=== PATIENT | male | born 1975 | race Caucasian/White ===

== ENCOUNTER 2018-11-18 11:27 | Emergency (ER) | payer OTHER ==
--- NOTE | 2018-11-18 12:08 | EDM.PDOC ---
ED HPI GENERAL MEDICAL PROBLEM - General Chief Complaint: Head Injury Stated Complaint: HIT HEAD ON ICE Time Seen by Provider: 11/18/18 11:55 - History of Present Illness INITIAL COMMENTS - FREE TEXT/NARRATIVE: HISTORY AND PHYSICAL: History of present illness: The patient is a 43-year-old male who presents with complaints of persistent headache and neck pain after sustaining a fall on Saturday while ice skating, 2 days ago. The patient tells me that in the weeks prior to the fall he has been working out at the gym again and he felt some discomfort in the right side of his neck that he felt was more muscular and he thought it may have been because he overdid it at the gym. The patient says that on Saturday he was skating backwards and lost his footing and fell backwards striking the back of his head. He does not recall passing out but his said he seemed dazed for a minute afterwards but he did not completely pass out. He went home and place ice on his scalp because there was swelling and that has since improved. He has had nausea and some persistent headache but no vomiting no chest pain no extremity complaints and no weakness in his extremities. He has no mid or lower back pain. He says his neck is more achy more on the right side, which is the area that was causing him discomfort before the fall, and he feels more stiff in his neck areas. He says he intermittently will have some tingling in bilateral upper extremities with certain movements of his head and neck but there is no weakness and it is not persistent. He denies any extremity pain and has been eating and drinking normally despite the nausea. He says he has had several concussions in the past and thought that it was just a concussion and did not come in initially but due to the persistence of the symptoms he thought he should be checked out. Feel confused or forgetful but he does feel intermittently dizzy and lightheaded but he is not passing out or blacking out Review of systems: As per history of present illness and below otherwise all systems reviewed and negative. Past medical history: As per history of present illness and as reviewed below otherwise noncontributory. Surgical history: As per history of present illness and as reviewed below otherwise noncontributory. Social history: No reported history of drug or alcohol abuse. Family history: As per history of present illness and as reviewed below otherwise noncontributory. Physical exam: General: Well-developed well-nourished man who is nontoxic and vital signs reviewed by me HEENT: Atraumatic, normocephalic, there is no evidence of any ischemic tissue changes soft tissue swelling defects or deformities of the scalp, EOMs are intact pupils reactive, negative for conjunctival pallor or scleral icterus, mucous membranes moist, throat clear, neck supple, nontender, trachea midline. There is no soft tissue tenderness defects or deformities of the facial bones, bite is intact, there are no midline step-offs tenderness defects of the cervical spine but there is diffuse paraspinal tenderness bilaterally including the trapezius Lungs: Clear to auscultation, breath sounds equal bilaterally, chest nontender Heart: S1S2, regular in rhythm no overt murmurs Abdomen: Soft, nondistended, nontender. NABS Pelvis: Stable nontender. Genitourinary: Deferred. Rectal: Deferred. Extremities: Atraumatic, negative for cords or calf pain. Neurovascular unremarkable. Full range of motion without defects or deficits Neuro: Awake, alert, oriented. Cranial nerves II through XII unremarkable. Cerebellum unremarkable. Motor and sensory unremarkable throughout. Exam nonfocal. Back: There are no midline step-offs in his defects of the thoracic or lumbar spine and no posterior pelvis or posterior rib tenderness Diagnostics: CT scan of the head and C-spine Therapeutics: Impression: Concussion syndrome, history of prior concussions, paraspinal cervical muscle status post fall Definitive disposition and diagnosis as appropriate pending reevaluation and review of above. neck right side Pain Score (Numeric/FACES): 5 - Related Data Allergies Allergy/AdvReac Type Severity Reaction Status Date / Time No Known Allergies Allergy Verified 11/18/18 11:44 Home Meds: Home Meds . [No Known Home Meds] 09/30/14 [History] Past Medical History - Infectious Disease History Infectious Disease History: Reports: Chicken Pox - Past Surgical History Musculoskeletal Surgical History: Reports: Other (See Below) Other Musculoskeletal Surgeries/Procedures:: knee surgery Social & Family History - Family History Family Medical History: Noncontributory - Tobacco Use Smoking Status *Q: Former Smoker Used Tobacco, but Quit: Yes Month/Year Tobacco Last Used: 1 - Recreational Drug Use Recreational Drug Use: No ED ROS GENERAL - Review of Systems Review Of Systems: ROS reveals no pertinent complaints other than HPI. ED EXAM, HEAD INJURY - Physical Exam Exam: See Below (see dictation) Course - Vital Signs Last Recorded V/S: Last Vital Signs Temp 36.4 C 11/18/18 11:45 Pulse 73 11/18/18 11:45 Resp 18 11/18/18 11:45 BP 142/89 H 11/18/18 11:45 Pulse Ox 98 11/18/18 11:45 Departure - Departure Time of Disposition: 13:27 Disposition: Home, Self-Care 01 Condition: Good Clinical Impression: Concussion injury of brain, Musculoskeletal pain, Neck pain - Discharge Information Referrals: PCP,None [Primary Care Provider] - Forms: ED Department Discharge Additional Instructions: The following information is given to patients seen in the emergency department who are being discharged to home. This information is to outline your options for follow-up care. We provide all patients seen in our emergency department with a follow-up referral. The need for follow-up, as well as the timing and circumstances, are variable depending upon the specifics of your emergency department visit. If you don't have a primary care physician on staff, we will provide you with a referral. We always advise you to contact your personal physician following an emergency department visit to inform them of the circumstance of the visit and for follow-up with them and/or the need for any referrals to a consulting specialist. The emergency department will also refer you to a specialist when appropriate. This referral assures that you have the opportunity for followup care with a specialist. All of these measure are taken in an effort to provide you with optimal care, which includes your followup. Under all circumstances we always encourage you to contact your private physician who remains a resource for coordinating your care. When calling for followup care, please make the office aware that this follow-up is from your recent emergency room visit. If for any reason you are refused follow-up, please contact the [facility] emergency department at and ask to speak to the emergency department charge nurse. [facility] Primary care- Internal Medicine and Family [address] [address] Use ice to all areas of discomfort for the next 24 hours and alternate heat and ice depending on activity level. Before doing any exercise please warm of the muscles and try to stretch them and open them up. Use [id number] ibuprofen or Motrin for pain and discomfort and schedule a follow-up appointment with your provider or one of hours in the clinic for further care and evaluation. Return to ER as needed and as discussed. Remember that with any concussion your can have signs and symptoms up to 2 weeks as we discussed.
--- NOTE | 2018-11-18 13:12 | CT ---
INDICATION: Fall, injury with pain and dizziness. TECHNIQUE: CT cervical spine without contrast. COMPARISON: None FINDINGS: Vertebrae: Alignment is normal. There are no fractures or suspicious bony lesions. Discs and facet joints: Disc spaces and facets are within normal limits. Extraspinal findings: Prevertebral soft tissues, visualized airway, and visualized lungs are unremarkable. IMPRESSION: Unremarkable cervical spine CT. No sign of injury. Please note that all CT scans at this facility use dose modulation, iterative reconstruction, and/or weight-based dosing when appropriate to reduce radiation dose to as low as reasonably achievable. Dictated by Kevin Brian MD @ Nov 18 2018 1:08PM Signed by Dr. Kevin Brian @ Nov 18 2018 1:11PM
--- NOTE | 2018-11-18 13:21 | CT ---
INDICATION: Fall, injury with pain and dizziness. TECHNIQUE: CT head without contrast. COMPARISON: None. FINDINGS: CSF spaces: Within normal limits for age. Brain parenchyma: The fine-white differentiation is normal. No sign of mass, hemorrhage, or midline shift. Skull base and calvarium: The visualized paranasal sinuses and mastoid air cells demonstrate no acute or significant findings. The visualized orbits are grossly unremarkable. No skull fractures. IMPRESSION: Unremarkable noncontrast head CT. No sign of injury. Please note that all CT scans at this facility use dose modulation, iterative reconstruction, and/or weight-based dosing when appropriate to reduce radiation dose to as low as reasonably achievable. Dictated by Kevin Brian MD @ Nov 18 2018 1:08PM Signed by Dr. Kevin Brian @ Nov 18 2018 1:18PM
[2018-11-18 13:58] VITALS: BP 142/93
== END 2018-11-18 13:45 | disposition home or self-care (01) ==
LOC: MW.ED 11:27
DX: S06.0X9A Concussion with loss of consciousness of unspecified duration, initial encounter (principal); M54.2 Cervicalgia; Z87.891 Personal history of nicotine dependence; V00.211A Fall from ice-skates, initial encounter
CPT/HCPCS: 70450; 70450-26; 72125; 72125-26; 99283; 99284-25